=== PATIENT | male | born 1970 | race Hispanic/Latino ===

== ENCOUNTER 2019-12-01 06:55 | Emergency (ER) | payer BC, SELFPAY ==
--- NOTE | ~2019-12-01 | XR_ITS ---
EXAMINATION: XR chest 2V 12/01/2019 07:56 INDICATION: Chest pain PROCEDURE: 2 view chest COMPARISON: No prior studies for comparison. FINDINGS: The lungs are clear. The cardiomediastinal silhouette is within normal limits. There are no pleural effusions. There is no pneumothorax suspected. IMPRESSION: 1: NO ACUTE CARDIOPULMONARY DISEASE. Reviewed, dictated and finalized at location A.
[2019-12-01 06:59] VITALS: BP 136/82; PULSE 60; RESP 19; TEMP 36.1; O2SAT 100
[2019-12-01 07:08] VITALS: PULSE 77
--- NOTE | 2019-12-01 07:16 | ECG_ITS ---
Measurements Intervals [place] Rate: 65 P: 57 SD: 195 QRS: 17 QRSD: 92 T: 30 QT: 372 QTc: 389 Interpretive Statements SINUS RHYTHM DELAYED PRECORDIAL R/S TRANSITION BORDERLINE ECG Electronically Signed On 12-01-2019 8:36:45 CDT by Jericho Hancock D.O.
[2019-12-01 07:42] LABS: Basophils Percent Auto 0.6 % (0.2-1.2); Eosinophils Absolute Auto 0.2 K/mm3 (0-0.3); Eosinophils Percent Auto 3.1 % (0-4.4); Hematocrit 39.8 % (42.0-52.0); Hemoglobin 13.6 g/dL (14.0-18.0); Lymphocytes Absolute Auto 2.73 K/mm3 (0.9-3.2); Lymphocytes Percent Auto 53.4 % (18.3-44.2); Mean Corpuscular HGB Conc 34.2 g/dl (32-36); Mean Corpuscular Hemoglobin 31.9 pg (26-34); Mean Corpuscular Volume 93.2 fl (80-100); Mean Platelet Volume 10.4 fl (7.4-10.4); Monocytes Absolute Auto 0.8 K/mm3 (0.1-0.6); Monocytes Percent Auto 15.3 % (2.6-8.5); Neutrophils Absolute Auto 1.4 K/mm3 (1.3-6.7); Neutrophils Percent Auto 27.6 % (45.5-73.1); Platelet Count Result 215 k/mm3 (150-375); Red Blood Count 4.27 M/mm3 (4.6-6.20); Red Cell Distribution Width 12.9 % (11.5-14.5); White Blood Count 5.1 K/mm3 (4.5-10.0)
--- NOTE | 2019-12-01 07:43 | ED.CHESTPAIN ---
HPI - Chest Pain General Chief Complaint: Chest Pain Stated Complaint: heart cramped Time Seen by Provider: 12/01/19 07:06 History of Present Illness HPI narrative: Patient is a 49-year-old male who presents the ER with chest pain. Began about 6:30 AM. Cramping/aching pain to the left side of his chest radiating to his left axilla. Reports he had some slight weakness towards the end of it but no diaphoresis/nausea/vomiting/dizziness. He reports earlier in the week she had an episode of right hand tingling with some dizziness as well as some left hand tingling and discomfort with laying down. Given these episodes he had spoke with his PCP who reported he should come to the ER if he had anything additional. Denies exertional dyspnea or chest discomfort. No personal history of coronary disease but reports family history with his father and other males on that side the family having open heart surgery. He has never had a stress test. No numbness or tingling at this time. Related Data Allergies Allergy/AdvReac Type Severity Reaction Status Date / Time No Known Allergies Allergy Verified 08/16/19 16:05 Review of Systems Review of Systems: All systems reviewed & are unremarkable except as noted in HPI and below Constitutional: Constitutional: Denies chills, Denies fever(s) and Denies weakness ENT: Denies nasal congestion and Denies sore throat Cardiovascular: Cardiovascular: Reports chest pain, Denies rapid heart rate and Reports radiating jaw, neck or arm pain Respiratory: Respiratory: Denies chest congestion, Denies cough and Denies dyspnea Gastrointestinal: Gastrointestinal: Denies abdominal pain, Denies diarrhea, Denies nausea and Denies vomiting Musculoskeletal: Musculoskeletal: Denies back pain and Denies muscle cramps Neurologic: Reports dizziness, Denies focal weakness and Reports numbness PMFSH Past Medical History Medical History (Updated 12/01/19 @ 10:57 by Zak Cook MD) Hypertension Mixed hyperlipidemia Rotator cuff tear arthropathy of right shoulder Surgical History Surgical History (Updated 12/01/19 @ 07:46 by Zak Cook MD) History of appendectomy Social History Social History Smoking status: Never smoker Alcohol intake: current Gender identity (if verbalized by the patient): Male Exam Narrative: Exam Narrative: GENERAL: Well-appearing, well-nourished, and in no acute distress. HEAD: Normocephalic, atraumatic. CHEST: Clear to auscultation. No respiratory distress. HEART: Regular rate and rhythm. No murmur heard. Normal peripheral pulses. ABDOMEN: Soft, nontender, nondistended. EXTREMITIES: Normal range of motion. No edema. SKIN: Warm, dry, no rash. NEURO: Alert and oriented x3. PSYCH: Normal mood and affect. Course Course Emergency Course: Troponin negative x2. Normal EKG. No chest pain while in the ER. Recommend follow-up with PCP. Vital Signs Vital signs: Vital Signs Temperature 97 F L 12/01/19 06:59 Pulse Rate 60 12/01/19 06:59 Respiratory Rate 19 12/01/19 06:59 Blood Pressure 136/82 12/01/19 06:59 Pulse Oximetry 100 12/01/19 06:59 Temperature 97 F L 12/01/19 06:59 Pulse Rate 60 12/01/19 09:54 Respiratory Rate 16 12/01/19 09:54 Blood Pressure 126/78 12/01/19 09:54 Pulse Oximetry 100 12/01/19 09:54 MDM - Chest Pain Lab Data Result diagrams: 12/01/19 07:34 12/01/19 07:34 Labs: Lab Results 12/01/19 12/01/19 12/01/19 Range/Units 07:34 07:34 07:34 WBC 5.1 (4.5-10.0) K/mm3 RBC 4.27 L (4.6-6.20) M/mm3 Hgb 13.6 L (14.0-18.0) g/dL Hct 39.8 L (42.0-52.0) % MCV 93.2 (80-100) fl MCH 31.9 (26-34) pg MCHC 34.2 (32-36) g/dl RDW 12.9 (11.5-14.5) % Plt Count 215 (150-375) k/mm3 MPV 10.4 (7.4-10.4) fl Immature Gran % (Auto) 0.0 (0-0.5) % Neut % (Auto) 27.6 L (45.5-73.1)
[2019-12-01] MEDS: ASPIRIN 81 MG CHEWABLE TABLET 324 MG PO (07:49)
[2019-12-01 07:56] LABS: INR 0.9; Prothrombin Time 12.2 Seconds (11.1-14.7)
[2019-12-01 07:59] LABS: Blood Urea Nitrogen 22 mg/dL (9-20); Calcium 9.2 mg/dL (8.4-10.2); Carbon Dioxide 30 mmol/L (22-30); Chloride 101 mmol/L (98-107); Estimated CRCL calculation 90 ml/min; Estimated Glomerular Filt Rate > 60; Glucose 93 mg/dL (75-110); Potassium 4.2 mmol/L (3.4-5.0); Sodium 136 mmol/L (137-145)
[2019-12-01 08:04] LABS: Troponin I < 0.012 ng/mL (0.000-0.034)
[2019-12-01 08:05] LABS: Partial Thromboplastin Time 21.7 SECONDS (22.3-36.8)
[2019-12-01 08:32] VITALS: BP 117/85; PULSE 71; RESP 16; O2SAT 100
[2019-12-01 09:54] VITALS: BP 126/78; PULSE 60; RESP 16; O2SAT 100
[2019-12-01 10:53] LABS: Troponin I < 0.012 ng/mL (0.000-0.034)
[2019-12-01 11:07] VITALS: BP 111/83; PULSE 61; RESP 20; O2SAT 97
== END 2019-12-01 11:08 | disposition home or self-care (01) ==
PROVIDERS: Emergency Provider Emergency Medicine; PCP Family Medicine
DX: R07.9 Chest pain, unspecified (principal); I10 Essential (primary) hypertension; E78.2 Mixed hyperlipidemia; R94.31 Abnormal electrocardiogram [ECG] [EKG]
CPT/HCPCS: 36415; 71046; 80048; 84484; 85025; 85610; 85730; 93005; 99284; A9270

== ENCOUNTER → 2019-12-10 13:20 | Outpatient (CLI) | payer BC, SELFPAY ==
--- NOTE | ~2019-12-10 | MR_ITS ---
EXAMINATION: MR brain/brain stem wo/w con EXAM DATE: 12/10/2019 14:03 INDICATION: Numbness of tongue and lips. Slurred speech. Intermittent dizziness. TECHNIQUE: Magnetic resonance imaging (MRI) of the brain/brain stem obtained without contrast. Sagit vanessa T1, axial diffusion, gradient echo (T2*), T1, T2, FLAIR sequences obtained. Patient was then inj ected with 14 cc intravenous Multihance contrast. Axial and coronal postcontrast T1 weighted sequence s obtained. There is no prior study for comparison. FINDINGS: There are no areas of restricted diffusion to suggest acute infarction. There is no acute hemorrhage seen on the T2*, a hemosiderin sensitive sequence. No intraparenchymal brain mass. The ve ntricles are normal in size. There are no extra-axial collections. Flow voids are seen in the cereb ral arteries on the T2-weighted sequences consistent with their expected patency. The orbits are unr emarkable. Soft tissue is unremarkable. There are no areas of abnormal enhancement on the postcont rast images. IMPRESSION: 1. Normal brain MRI examination. Reviewed, dictated and finalized at location B.
--- NOTE | ~2019-12-10 | US_ITS ---
EXAMINATION: US carotid duplex BI EXAM DATE: 12/10/2019 14:38 INDICATION: Speech impairment, finger tongue lip paresthesia. TECHNIQUE: Grayscale, color and pulsed Doppler images of the cervical carotid arteries were obtained . The degree of vessel stenosis is placed in one of the following categories: normal, <50% stenosis, 50-69% stenosis, >=70% stenosis but less than near-occlusion, near-occlusion, or occlusion. Note that percent stenosis relative to normal distal artery lumen diameter is indirectly measured from velocit y measurements as described by Miguel, et al. Radiology 2003; 229:340-346. There is no prior study fo r comparison. FINDINGS: RIGHT SIDE: Right common carotid artery peak systolic velocity (PSV in cm/s): 102 Right bulb/internal carotid artery peak systolic velocity (PSV in cm/s): 79 Right internal carotid artery end diastolic velocity (EDV in cm/s): 18 Right ICA/CCA peak systolic ratio: 0.8 Right external carotid artery peak systolic velocity (PSV in cm/s): 70 Right vertebral artery antegrade flow: yes There is no focal plaque identified. LEFT SIDE: Left common carotid artery peak systolic velocity (PSV in cm/s): 80 Left bulb/internal carotid artery peak systolic velocity (PSV in cm/s): 58 Left internal carotid artery end diastolic velocity (EDV in cm/s): 21 Left ICA/CCA peak systolic ratio: 0.7 Left external carotid artery peak systolic velocity (PSV in cm/s): 51 Left vertebral artery antegrade flow: yes There is no focal plaque identified. IMPRESSION: 1. Normal right internal carotid artery. 2. Normal left internal carotid artery. > Reviewed, dictated and finalized at location B.
== END ==
PROVIDERS: Visit Provider Physician Assistant
DX: R20.2 Paresthesia of skin (principal)
CPT/HCPCS: 70553; 93880; A9577

== ENCOUNTER 2019-12-20 09:33 | Outpatient (CLI) | payer BC, SELFPAY ==
--- NOTE | 2019-12-20 09:46 | EST_ITS ---
Patient Info Name: Brodie Arreola Age: 49 years : 1970 Gender: Male Ht: 67 in Wt: 158 lbs BSA: 1.85 m2 Exam Date: 12/20/2019 9:59 AM Exam Location: [facility] Stress Patient Status: Outpatient Admit Date: 12/20/2019 Staff Ordering Physician: Connie Simms PA-C Attending Provider: Connie Simms PA-C Exercise Technologist: Claudette Erickson RDCS Exercise Physician: Jericho Hancock DO Exam Type: CA stress test treadmill Study Info Indications R07.9 - Chest pain, unspecified A treadmill exercise stress test was performed. Summary 1. 1. Negative Joss exercise stress test for ischemic ST changes by ECG criteria. 2. 2. Good functional capacity, achieving 13 METs of workload. 3. 3. Appropriate HR response to exercise. 4. 4. Appropriate HR recovery at 1 minute post exercise. 5. 5. No imaging with stress testing. 6. 6. Patient informed of the above results. Protocol: Joss Stress ECG Details Stage: REST Duration (min): 5 min : 50 sec Speed (mph): 0.0 Grade (%): 0 HR (bpm): 64 SBP (mmHg): 96 DBP (mmHg): 70 METS: --- Stage: REST Duration (min): 8 min : 30 sec Speed (mph): 0.0 Grade (%): 0 HR (bpm): 65 SBP (mmHg): 96 DBP (mmHg): 70 METS: --- Stage: STAGE 1 Duration (min): 1 min : 0 sec Speed (mph): 1.7 Grade (%): 10 HR (bpm): 97 SBP (mmHg): 96 DBP (mmHg): 70 METS: --- Stage: STAGE 1 Duration (min): 2 min : 0 sec Speed (mph): 1.7 Grade (%): 10 HR (bpm): 105 SBP (mmHg): 96 DBP (mmHg): 70 METS: --- Stage: STAGE 1 Duration (min): 3 min : 0 sec Speed (mph): 1.7 Grade (%): 10 HR (bpm): 108 SBP (mmHg): 143 DBP (mmHg): 69 METS: --- Stage: STAGE 2 Duration (min): 1 min : 0 sec Speed (mph): 2.5 Grade (%): 12 HR (bpm): 118 SBP (mmHg): 143 DBP (mmHg): 69 METS: --- Stage: STAGE 2 Duration (min): 2 min : 0 sec Speed (mph): 2.5 Grade (%): 12 HR (bpm): 127 SBP (mmHg): 143 DBP (mmHg): 68 METS: --- Stage: STAGE 2 Duration (min): 3 min : 0 sec Speed (mph): 2.5 Grade (%): 12 HR (bpm): 129 SBP (mmHg): 143 DBP (mmHg): 68 METS: --- Stage: STAGE 3 Duration (min): 1 min : 0 sec Speed (mph): 3.4 Grade (%): 14 HR (bpm): 137 SBP (mmHg): 142 DBP (mmHg): 62 METS: --- Stage: STAGE 3 Duration (min): 2 min : 0 sec Speed (mph): 3.4 Grade (%): 14 HR (bpm): 141 SBP (mmHg): 142 DBP (mmHg): 62 METS: --- Stage: STAGE 3 Duration (min): 3 min : 0 sec Speed (mph): 3.4 Grade (%): 14 HR (bpm): 145 SBP (mmHg): 150 DBP (mmHg): 64 METS: --- Stage: STAGE 4 Duration (min): 1 min : 0 sec Speed (mph): 4.2 Grade (%): 16 HR (bpm): 152 SBP (mmHg): 150 DBP (mmHg): 64 METS: --- Stage: STAGE 4 Duration (min): 2 min : 0 sec Speed (mph):
== END 2019-12-20 09:34 | disposition home or self-care (01) ==
LOC: ANHCARD 09:35
PROVIDERS: Visit Provider Physician Assistant
DX: R07.9 Chest pain, unspecified (principal)
CPT/HCPCS: 93017

== ENCOUNTER 2020-02-06 00:56 | Outpatient (CLI) | payer BC, SELFPAY ==
[2020-02-06 18:19] LABS: SARS-CoV-2 RNA PCR Negative
== END 2020-02-06 00:57 | disposition home or self-care (01) ==
LOC: ANHCOVIDDT 00:56
PROVIDERS: PCP Family Medicine; Visit Provider Internal Medicine Gastroenterology
DX: Z01.812 Encounter for preprocedural laboratory examination (principal); Z20.828 Contact with and (suspected) exposure to other viral communicable diseases
CPT/HCPCS: 87635; C9803; U0003

== ENCOUNTER 2020-02-08 00:54 | Day surgery (SDC) | payer BC, SELFPAY ==
[2020-01-31 12:55] VITALS: BMI 24.8
[2020-02-08 06:28] VITALS: BP 111/71; PULSE 67; RESP 16; TEMP 36.1; O2SAT 100; BMI 23.3
[2020-02-08] MEDS: LACTATED RINGERS 1,000 ML 150 ML IV CONT (06:45)
--- NOTE | 2020-02-08 07:14 | WPDANESEPPF ---
Anes - Initial Pre Proc Eval Procedure: Operation Date: 02/08/20 07:30 Proposed Procedures p Screening Colonoscopy - Noe Castro MD Date/Time: 02/08/20 07:14 Surgeon: Noe Castro MD Pre Op Diagnosis: neoplasm screening Patient Data Age: 49 Gender: M Height: 5 ft 7 in Weight: 67.4 kg Last Vital Signs Temp 97.0 F L 02/08/20 06:28 Pulse 67 02/08/20 06:28 Resp 16 02/08/20 06:28 BP 111/71 02/08/20 06:28 Pulse Ox 100 02/08/20 06:28 Allergies Allergy/AdvReac Type Severity Reaction Status Date / Time No Known Allergies Allergy Verified 02/08/20 06:27 Home Medications Medication Instructions Recorded Confirmed Type peg 3350-electrolytes 236 240 ml PO Q10M #4000 ml 12/10/19 01/10/20 Rx gram-22.74 gram-6.74 gram-5.86 gram solution lisinopril 10 mg tablet 10 mg PO DAILY #90 tablet 01/21/20 02/08/20 Rx Patient hx anesthesia problems: none Family hx anesthesia problems: none PMFSH Past Medical History Medical History (Updated 12/02/19 @ 00:00 by Cristian Wolf) Hypertension Mixed hyperlipidemia Rotator cuff tear arthropathy of right shoulder Surgical History Surgical History (Updated 12/01/19 @ 07:46 by Zak Cook MD) History of appendectomy Social History Social History Smoking status: Never smoker Alcohol intake: current Gender identity (if verbalized by the patient): Male Anes - Eval Final PreProcedure Day of Procedure 02/08/20 07:14 Patient weight: normal Heart: regular rate and rhythm Lungs: clear to auscultation Airway: Mallampati scale class II Neurological: alert and oriented Last oral intake: >/= 8 hours ASA classification: II Emergent: no Anesthetic plan: proceed Anesthesia type and monitoring: general GIVS and standard monitoring Informed Consent: The patient's anesthetic plan and its attendant risks and benefits were discussed with the patient/family/POA. Questions were solicited and answers provided to the satisfaction of the patient/family/POA.
--- NOTE | 2020-02-08 07:34 | PM.HPGS ---
History of Present Illness History of Present Illness Consent: Risks, benefits, and alternatives have been discussed and questions answered. Patient agrees to proceed with procedure. Chief complaint: neoplasm screening Narrative: Brodie Arreola is a 49 year old male here for first screening colonoscopy Review of Systems Constitutional: Constitutional: Denies headache(s) and Denies weakness Eyes: Eyes: Denies blurry vision ENT: Reports Normal hearing present, Denies headache(s) and Denies neck pain Cardiovascular: Cardiovascular: Denies chest pain and Denies dyspnea Respiratory: Respiratory: Denies dyspnea Gastrointestinal: Gastrointestinal: Reports no additional gastrointestinal complaints Genitourinary: Genitourinary: Denies dysuria Musculoskeletal: Musculoskeletal: Denies neck pain Integumentary/Breasts: Skin/Breast: Denies dry skin Neurologic: Reports Normal hearing present, Denies headache(s) and Denies weakness Psychiatric: Psychiatric: Denies anxiety Endocrine: Endocrine: Denies change in body appearance Hematologic/Lymphatic: Hematologic/Lymphatic: Denies easy bleeding Allergic/Immunologic: Allergic/Immunologic: Denies urticaria [facility] Past Medical History Medical History (Updated 02/08/20 @ 07:34 by Noe Castro MD) Colon cancer screening Hypertension Mixed hyperlipidemia Rotator cuff tear arthropathy of right shoulder Surgical History Surgical History (Updated 12/01/19 @ 07:46 by Zak Cook MD) History of appendectomy Social History Social History Smoking status: Never smoker Alcohol intake: current Gender identity (if verbalized by the patient): Male Meds Home Medications and Allergies Home Medications Medication Instructions Recorded Confirmed Type peg 3350-electrolytes 236 240 ml PO Q10M #4000 ml 12/10/19 01/10/20 Rx gram-22.74 gram-6.74 gram-5.86 gram solution lisinopril 10 mg tablet 10 mg PO DAILY #90 tablet 01/21/20 02/08/20 Rx Allergies Allergy/AdvReac Type Severity Reaction Status Date / Time No Known Allergies Allergy Verified 02/08/20 06:27 Vital Signs Vital Signs - 24 hr 02/08/20 06:28 Temperature 97.0 F L Pulse Rate 67 Respiratory Rate 16 Blood Pressure 111/71 Pulse Oximetry 100 Exam Const: General: comfortable and no acute distress HENMT: General nose exam: Normal nares present Eyes: General: appearance normal, both eyes and all related structures Neck: Neck: no JVD Resp: Auscultation: clear to auscultation bilaterally Cardio: Rate: regular rate Rhythm: regular rhythm GI: Inspection: non-distended GI Palp: Yes Soft to palpation Skin: General skin exam: normal color Neuro: General: gait normal Speech: normal speech Extrem: General: normal to inspection Psych: Mental Status: mental status grossly normal Assessment and Plan Assessment and plan (1) Colon cancer screening: Code(s): Z12.11 - Encounter for screening for malignant neoplasm of colon Status: Acute Assessment and Plan: will proceed with colonoscopy
[2020-02-08 07:52] VITALS: BP 84/48; PULSE 60; RESP 24; O2SAT 100
[2020-02-08 08:02] VITALS: BP 98/55; PULSE 58; RESP 20; O2SAT 99
[2020-02-08 08:12] VITALS: BP 103/70; PULSE 58; RESP 20; O2SAT 96
== END 2020-02-08 08:30 | disposition home or self-care (01) ==
PROVIDERS: PCP Family Medicine; Visit Provider Internal Medicine Gastroenterology
PROC: 0DJD8ZZ Inspection of Lower Intestinal Tract, Via Natural or Artificial Opening Endoscopic (ICD-10-PCS; CPT 45378; principal; 2020-02-08 07:30)
DX: Z12.11 Encounter for screening for malignant neoplasm of colon (principal); I10 Essential (primary) hypertension; E78.2 Mixed hyperlipidemia; Z79.899 Other long term (current) drug therapy
CPT/HCPCS: 45378; J2704; J7120

== ENCOUNTER → 2021-01-06 06:54 | Outpatient (CLI) | payer BC, SELFPAY ==
[2021-01-06 20:36] LABS: SARS-CoV-2 RNA PCR Negative
== END ==
PROVIDERS: PCP Family Medicine; Visit Provider Family Medicine
DX: Z20.822 Contact with and (suspected) exposure to COVID-19 (principal); R09.89 Other specified symptoms and signs involving the circulatory and respiratory systems
CPT/HCPCS: C9803; U0003; U0005

== ENCOUNTER 2021-09-02 15:51 | Outpatient (CLI) | payer BC, SELFPAY ==
--- NOTE | ~2021-09-02 | MR_ITS ---
EXAMINATION: MR shoulder LT wo con DATE: 09/02/2021 16:29 INDICATION: Left shoulder pain TECHNIQUE: Magnetic resonance imaging (MRI) of the left shoulder was performed without intravenous co ntrast. Sequences included axial PD-weighted FS FSE, coronal oblique PD-weighted FS FSE, coronal obli que T2-weighted FS FSE, sagittal PD-weighted FS FSE, and sagittal T1-weighted SE. COMPARISON: None. FINDINGS: Coracoacromial arch: The acromion undersurface is curved in morphology (type II). The coracoacromial ligament is normal. N egligible acromioclavicular osteoarthritis. Rotator cuff: Mild supraspinatus and infraspinatus tendinopathy. Partial-thickness tear of the supraspinatus and co njoined portion of the supraspinatus and infraspinatus tendons. The tear begins anteriorly in the sup raspinatus tendon as a mild intrasubstance tear involving approximately one third of the tendon thick ness and extending 8 mm posteriorly to where it transitions to an articular sided tear of the conjoin ed portion of the tendon extending additional 7 mm posteriorly. The articular portion of the tear is located approximately 7 mm from the greater tuberosity footplate and involves up to one half of the t endon thickness. There is no significant medial retraction. The teres minor and subscapularis tendons are normal. Normal rotator cuff muscle bulk and signal. Biceps tendon, glenoid labrum and glenohumeral cartilage: Long head of the biceps tendon is normal. Glenoid labrum is normal. Glenohumeral cartilage is normal. Fluid: Physiologic amount of fluid in the glenohumeral joint and biceps tendon sheath. No loose osteochondr al bodies. No abnormal fluid signal in the subacromial/subdeltoid bursa to suggest bursitis. Bones: Normal marrow signal with no edema, fracture or pathologic marrow replacing process. IMPRESSION: 1. Mild supraspinatus and infraspinatus tendinopathy with mild severity partial-thickness intrasubsta nce tear in the supraspinatus transitioning to a moderate severity articular sided tear at the conjoi angel portion of the supraspinatus and infraspinatus tendons. Reviewed, dictated and finalized at location A. IMPRESSION: 1. Mild supraspinatus and infraspinatus tendinopathy with mild severity partial -thickness intrasubstance tear in the supraspinatus transitioning to a moderate severity articular sided tear at the conjoined portion of the supraspinatus an d infraspinatus tendons.
== END 2021-09-02 15:52 | disposition home or self-care (01) ==
LOC: ANHIMG 15:55
PROVIDERS: PCP Family Medicine; Visit Provider Orthopaedic Surgery
DX: M75.102 Unspecified rotator cuff tear or rupture of left shoulder, not specified as traumatic (principal)
CPT/HCPCS: 73221

== ENCOUNTER 2022-01-04 00:21 | Day surgery (SDC) | payer BC, SELFPAY ==
[2021-12-30 09:17] VITALS: BMI 24.3
--- NOTE | 2021-12-30 09:22 | PC.NURSE ---
Report to the Outpatient Waiting Room, entrance under the green pavilion located off [facility], at time _0600_ on date _[id number]_. OR Time: _0730_. - You and your visitor will be asked a series of questions to screen for COVID 19 for your protection. - Only one visitor is allowed at this time. - The patient visitor is requested to leave or wait in car when not with patient. - A mask is required within the hospital. Patients may have clear liquids (water, carbonated beverages, clear teas, apple juice) until 3 hours prior to surgery with a maximum of 20 ounces. - No food from midnight until time of surgery Take the following medications with a SIP of water the morning of surgery: ____None Medications to discontinue per physician Multivitamin Date to take last wits__[id number] Please no make-up, nail zambian, hairspray, perfume, deodorant, or body powder the day of surgery. No jewelry (including any body piercings) or valuables the day of surgery, leave them at home. Please take a shower or bath the night before, or the morning of, surgery with an antibacterial soap. Wear comfortable, loose fitting clothing. - Jewelry must be removed prior to entering the operating room. Rings and piercings that are not removed may be cut off. - The hospital will not accept responsibility for valuables. - Please leave all valuables, including medications, at home the day of surgery. If you are going home after surgery, a licensed lyft driver must drive you home. - NO public transportation without another adult. - We recommend that an adult stay with you for 24 hours following discharge. - We also recommend that you do not drive, make important decision, drink alcoholic beverages, or take any drugs that were not prescribed by your health care provider for at least 24 hours after your discharge time. Follow any additional instructions given to you from your surgeon. If you or anyone in your household have experienced Covid symptoms in the past week, please notify your surgeon or the nurse liaison at the phone number below for possible testing. Telephone instructions given to __Patient and asked if any additional questions and then verbalized understanding. Patient advised to call surgeon office or pre surgery nurse liaison [phone] if any additional questions.
[2022-01-04] VITALS (10 sets, daily range): BP systolic 92–116; BP diastolic 43–83; PULSE 60–74; RESP 13–18; TEMP 36.3–36.5; O2SAT 96–100
--- NOTE | 2022-01-04 05:56 | ECG_ITS ---
Measurements Intervals [place] Rate: 69 P: 62 ID: 194 QRS: 25 QRSD: 92 T: 21 QT: 361 QTc: 388 Interpretive Statements SINUS RHYTHM DELAYED PRECORDIAL R/S TRANSITION BORDERLINE ECG Electronically Signed On 01-04-2022 7:48:24 CDT by Jericho Hancock D.O.
--- NOTE | 2022-01-04 06:50 | P.PNAN_ITS ---
Anes - Initial Pre Proc Eval Procedure: Operation Date: 01/04/22 07:30 Proposed Procedures p Left Rotator Cuff Repair - Nehemiah Blancas MD Date/Time: 01/04/22 06:50 Surgeon: Nehemiah Blancas MD Pre Op Diagnosis: Left Rotator Cufff Tear Patient Data Age: 51 Gender: M Height: 1.7 m Weight: 70.5 kg Allergies Allergy/AdvReac Type Severity Reaction Status Date / Time No Known Allergies Allergy Verified 12/30/21 09:16 Home Medications Medication Instructions Recorded Confirmed Type lisinopril 10 mg tablet See Rx Instructions .Route 10/02/21 12/30/21 Rx .COMPLEX #90 tabs ferrous sulfate 325 mg (65 mg See Rx Instructions .Route 11/30/21 12/30/21 Rx iron) tablet (FeroSul) .COMPLEX #90 tabs multivitamin 1 tablet PO DAILY 12/30/21 12/30/21 History Patient hx anesthesia problems: none Family hx anesthesia problems: none Results Review: All pre-operative results and documents have been reviewed as part of the pre- operative evaluation. [facility] Past Medical History Medical History Colon cancer screening Hypertension Left shoulder pain Mixed hyperlipidemia Rotator cuff tear arthropathy of right shoulder Surgical History Surgical History H/O rotator cuff surgery right rotator cuff repair June 2018 History of appendectomy History of surgery on arm radial tunnel 2017 Family History Family History Grandparent Hypertension Family history of coronary artery disease Family history of cardiovascular disease Father Family history of coronary artery disease Family history of cardiovascular disease Sibling Diabetes mellitus Social History Social History Smoking status: Never smoker Alcohol intake: current Drinks per week: 2 Substance use: never Living arrangements: with family 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, journeyman pipefitter Gender identity (if verbalized by the patient): Male Spiritual care concerns: Yes (No blood.) Agree to blood products: No Anes - Eval Final PreProcedure Day of Procedure 01/04/22 06:50 Patient weight: normal Heart: regular rate and rhythm Lungs: clear to auscultation Airway: Mallampati scale class II Neurological: alert and oriented Last oral intake: >/= 8 hours ASA classification: II Emergent: no Anesthetic plan: proceed Anesthesia type and monitoring: general ETT and standard monitoring Results Review: All pre-operative results and documents have been reviewed as part of the pre- operative evaluation. Informed Consent: The patient's anesthetic plan and its attendant risks and benefits were discussed with the patient/family/POA. Questions were solicited and answers provided to the satisfaction of the patient/family/POA.
--- NOTE | 2022-01-04 06:50 | WPDANESPNB ---
Anes - Peripheral Nerve Block Date/Time: 01/04/22 06:50 I have discussed with the patient/family/POA the placement of a peripheral nerve block for post-operative pain management, including associated risks, benefits, complications, and side effects. Alternative methods of post-operative analgesia were detailed. Questions were solicited and answers provided to the satisfaction of the patient/family/POA. Time-Out: A pre-procedural Time-Out was completed immediately before starting the procedure and confirmed: Patient Identification, Site, Procedure, Patient Position and the Availability of Requisite Equipment. Clinical Indications: Acute post-operative pain management requested by the operative surgeon. Nerve Block Insertion Note Anes-nerve block: supraclavicular left Patient position: supine Skin prep: chlorhexidine Needle: 22 gauge, stimulating, insulated echogenic needle. Needle length: 80 mm Technique: ultrasound (in plane) Injectate: bupivacaine 0.5% with epi 5 mcg/ml (20cc) Observations: tolerated well Complications: none Procedure start time:: 720 Procedure end time:: 725
[2022-01-04] MEDS: LACTATED RINGERS 1,000 ML 30 ML IV CONT (06:55)
[2022-01-04] MEDS: ACETAMINOPHEN 500 MG TABLET 1000 MG PO (06:55)
[2022-01-04] MEDS: KETOROLAC 15 MG/ML VIAL (*BKC) IV PUSH (06:56)
--- NOTE | 2022-01-04 07:19 | WPDHPUPDATE1 ---
History and Physical Update Update Date/Time: 01/04/22 07:19 History and Physical has been reviewed, including an updated exam of the patient. There are NO changes in the patient's condition. Risks, benefits, and alternatives have been discussed and questions answered. Patient agrees to proceed with procedure.
[2022-01-04] MEDS: ceFAZolin 2 GM/D5W 50 ML 2 GM/50 ML BAG IVPB (07:35)
[2022-01-04] MEDS: BUPIVACAINE/EPINEPHRINE 0.25% 50 ML VIAL INFILTRATE (08:05)
--- NOTE | 2022-01-04 08:42 | P.OP_ITS ---
Procedure Note - Detailed Date of Procedure 01/04/22 Pre-op Diagnosis Left Rotator Cufff Tear Post-op Diagnosis Same Procedure Performed Left rotator cuff repair Surgeon Nehemiah Blancas MD Physician Practice Market Manager [facility]iel Anesthesia General and Regional Description of Procedure Patient was identified and proper site identified. In the preop holding area the anesthesia team performed a left upper extremity block. He was then taken to the operating room and transferred to the or table taking care to pad the torso and extremities. After general anesthetic induction and intubation, hewas put in a semi beach chair position in the usual manner for a leftshoulder procedure. His head was secured taking care to neither rotate nor extend the head and neck. The left upper extremity was prepped and draped free in usual sterile fashion. The subcutaneous tissue in the area of the incision was injected with 10 cc of 0.25% Marcaine and epinephrine solution. An oblique anterior incision was made extending from the AC joint distally in line with the fibers of the deltoid. Subcutaneous tissue was sharply dissected down to the deltoid fascia. The deltoid was dissected off the anterior portion of the acromion. A 2 cm split was made at the junction between the anterior and middle thirds of the deltoid. Using the microsagittal saw was used to perform the acromioplasty and then the undersurface of the acromion was rasped smooth. There was an abundance of thickened adherent bursa which was sharply debrided allowing for inspection of the rotator cuff. The cuff itself in the supraspinatus was quite erythematous and was an area the supraspinatus insertion that was extremely thin corresponding to what was seen on the MRI. The remaining fibers of the tendon were released off of the greater tuberosity allowing for debridement of the tendon as well as preparing the tuberosity for repair. Was repaired back to the tuberosity with 2. Ethibond suture passed through a bony bridge giving a allen repair which was stable as the shoulder was taken through range of motion. The wound was irrigated with sterile NaCl solution. The deltoid was repaired back to the acromion with 2. Ethibond suture passed through bone and the remainder of the deltoid repair carried out with 2. Vicryl. Subcutaneous tissue was reapproximated with three 0 V lock and then tissue adhesive used for the skin. Sterile dressing was applied. There were no known intraoperative complications, and perioperative antibiotics were administered. Estimated Blood Loss 20 Drains No Packing No Pathology None sent Complications No immediate complications Condition Stable Disposition PACU
== END 2022-01-04 10:36 | disposition home or self-care (01) ==
PROVIDERS: PCP Family Medicine; Visit Provider Orthopaedic Surgery
PROC: (CPT 23420; principal; 2022-01-04 07:30)
DX: M75.102 Unspecified rotator cuff tear or rupture of left shoulder, not specified as traumatic (principal); G89.18 Other acute postprocedural pain; I10 Essential (primary) hypertension
CPT/HCPCS: 23412; 64415; 93005; A4565; A9270; J0330; J0690; J1100; J1170; J1885; J2250; J2370; J2405; J2704; J3010; J7120

== ENCOUNTER 2022-04-05 08:00 | Outpatient (RCR) | payer BC, SELFPAY ==
[2022-01-06 10:36] VITALS: BP_SYST 70
--- NOTE | 2022-01-06 11:25 | PTOPEVAL ---
PHYSICAL THERAPY EVALUATION AND PLAN OF CARE Thank you for referring Brodie Arreola to [facility].? The patient is scheduled to be seen for therapy? 2-3x/week for 6 weeks. Please review, sign, date and return this plan of care SYDNEY. I agree with and certify that the following plan of care is medically necessary. Referring Physician Date Attending Provider: Nehemiah Blancas MD Diagnosis left rotator cuff repair Onset 01/04/22 Subjective Information states that he is feeling ok Query Text:As Reported By Patient/ except for pain in the Family shoulder after the nerve block wore off. Wears the sling out of the house and as needed. Self Report Pain Assessment Left Shoulder(s) Reported Pain Level 4 Pain Description Aching,Dull Pain Frequency Chronic Pain Score Pain Score 4: Self Report Interventions Used Interventions Used By Clinicians Ice,Position Change,Rest Other Alleviating Interventions sling Upper Extremity Range of Motion Scapular/ Shoulder Range of Motion Left Shoulder Flexion - Passive 80 Shoulder Abduction - Passive 70 Shoulder Lateral Rotation - Passive 10 PT Clinical Summary Brodie is a 51 yo male presenting to outpatient physical therapy 2 days s/p left rotator cuff repair. Incision is clean and without drainage and his pain is controlled with medication. Due to surgical precautions he has limited shoulder ROM and strength and impaired ADLs. He will require skilled PT to provide education, training, and progress through protocol to rehabilitate well.
[2022-02-18 10:56] VITALS: BP_SYST 90
--- NOTE | 2022-02-18 13:45 | PTOPPROG ---
Evaluation Information Assessment Status Progress Diagnosis Left RTC repair Onset 01/04/22 Subjective Information Pt states his pain was really well controlled for the first couple weeks. He states in the last week or so since he has been able to do more, his shoulder has been really sore and achy. Assessment PT Clinical Summary Brodie presents to therapy today for his progress report following 12 visits to treat his L RTC repair performed on 01/06/22. He has progress to the active ROM and resisted motion phase of his rehab. Today he is unable to tolerate resistance. He demonstrates decreased active and passive ROM when compared to his uninvolved side. He demonstrates frequent upper trap activation during general movements. Continuation of skilled physical therapy services are indicated to address the remaining deficits, manage pain, progress strength and ROM, and to return to unlimited functional mobility. Plan of Care Interventions Electrical Stimulation,Hot Pack/Cold Pack,Manual Therapy,Neuro Re-education,Patient/Caregiver Educati,Therapeutic Activities,Therapeutic Exercise PT Services Indicated Yes Treatment Frequency and 3x/wk for 4 wks Duration These treatments will address the objective and functional deficits as defined above. The patient will be advanced safely and appropriately in order for the patient to progress towards his/her prior level of function. Additional exercises will be introduced and as well as a comprehensive home exercise program upon discharge, if needed, ?to ensure carryover of functional gains achieved in the clinic. This treatment plan has been reviewed and agreement upon by the patient.
--- NOTE | 2022-03-05 10:22 | PCPTNOTE ---
Patient called & cancelled scheduled appointment this date due to not having a sitter for his grandchildren.
[2022-03-23 09:01] VITALS: BP_SYST 115
--- NOTE | 2022-03-23 09:58 | PTOPPROG ---
Assessment and note entered by Mauricio Queen, PT, DPT Evaluation Information Assessment Status Progress Diagnosis Left RTC repair Onset 01/04/22 Subjective Information Pt states his shoulder is progressing well but not as quick as he would like. He states he is limited in what he can do overhead as well as prolonged motions with his arm outstretched. He states he is still not sleeping well. He reports last night he was having pretty significant cramping in his hands. Assessment PT Clinical Summary Peggy presents to therapy today for his progress report following 21 visits of skilled therapy to treat his L rotator cuff regain performed on . Today he demonstrates improving strength, active ROM, and passive ROM. All of these are still lacking significantly when compared to his uninvolved side. His active/passive flexion is 114 /135 deg, abduction is 88/115 deg, and passive shoulder ext rot is 38 deg. Continuation of skilled physical therapy services are indicated to continue progressing towards goals, to improve pain, and to promote unlimited functional mobility . Plan of Care Interventions Electrical Stimulation,Hot Pack/Cold Pack,Manual Therapy,Neuro Re-education,Patient/Caregiver Educati,Therapeutic Activities,Therapeutic Exercise PT Services Indicated Yes Treatment Frequency and 2x/wk for 4 wks Duration These treatments will address the objective and functional deficits as defined above. The patient will be advanced safely and appropriately in order for the patient to progress towards his/her prior level of function. Additional exercises will be introduced and as well as a comprehensive home exercise program upon discharge, if needed, ?to ensure carryover of functional gains achieved in the clinic. This treatment plan has been reviewed and agreement upon by the patient.
--- NOTE | 2022-04-06 08:24 | PCPTNOTE ---
This treatment is being continued on visit number [id number]. Please see documentation on both accounts to view progress. Completed interventions, outcomes, and problems have been marked as Inactive to facilitate the copying of the Care plan routine for recurring accounts.
== END 2022-04-06 07:08 | disposition home or self-care (01) ==
LOC: ANHPT 08:00
PROVIDERS: PCP Family Medicine; Visit Provider Orthopaedic Surgery
DX: M75.112 Incomplete rotator cuff tear or rupture of left shoulder, not specified as traumatic (principal)
CPT/HCPCS: 97014; 97110; 97112; 97140; 97162; 97530; G0283

== ENCOUNTER 2022-04-28 08:00 | Outpatient (RCR) | payer BC, SELFPAY ==
[2022-04-06 07:08] VITALS: BP_SYST 115
--- NOTE | 2022-04-06 08:25 | PCPTNOTE ---
The treatment documented on this account is a continuation of the treatment documented on visit number [id number]. Please see documentation on both accounts to view progress. The Plan of Care has been transitioned and updated within the new V#. I have addressed and agree with the discipline specific Problems, Interventions, and Goals for the current certification period. Completed interventions, outcomes, and problems have been marked as Inactive to facilitate the copying of the Care plan routine for recurring accounts.
[2022-04-28 08:05] VITALS: BP_SYST 140
--- NOTE | 2022-04-28 08:57 | PTOPPROG ---
Assessment and note entered by Jackie Gomez, PT Evaluation Information Assessment Status Progress Diagnosis Left RTC repain Onset 01/04/22 Subjective Information Brodie reports: pain range of 0-5/10; at end range of stretching pain increases--pain in lateral GH joint; tight in the morning when wake up; decrease pain by stretching, moving shoulder; at home, use pullys or wall stretch to stretch shoulder; job is welding and pipe fitting--8 hour shifts--- feels like he cannot do his job yet; stated his job requirement for lifting is max: one hand 40#/ B hands 80#; had an injection 03-25-22 and not sure if it helped or not; Assessment PT Clinical Summary Brodie has received a total of 31 PT sessions, from January 06 to today, s/p L rotator cuff repair. With today's reassessment: L shoulder: pain rating of 0-5/10; ROM: active/passive: flexion 130'/ 140'; abduction 130'/140'; IR- reach behind back, palm to waist; ER- reach behind head, palm to behind ear; functional strength testing: L UE: - shoulder flexion to 120' with 5# hand wt x 20 reps, pain did not increase, but shoulder tired; - shoulder abduction to 125' with 5# hand wt x 12 reps, pain did not increase, but shoulder tired; Maximum B UE lift: - floor/waist height: 55#-stop due to reports pain in L elbow - waist/shoulder: 30 to 55 height: 28#- stop due to pain and shoulder weakness He is independent with his home exercise program-- has pulleys at home, working on stretching and strengthening shoulder. PROGRESS: since last reeval: increase in active shoulder flexion by 15' and abduction by 40'; strength has increased. He continues to have pain rating of about the same; tightness over scapula , limiting his scapular-humeral rhythm with shoulder elevation with motion. The goals were partially achieved. Continue PT treatment to increase strength for return to work. With use of modalities PRN to decrease pain and tightness.
--- NOTE | 2022-06-21 16:17 | PCPTNOTE ---
PHYSICAL THERAPY DISCHARGE 06-21-22 Attending Provider: Nehemiah Blancas MD Patient:Brodie Arreola Date of :1970 Brodie has not returned for any further treatments since the reevaluation on 04/28/2022, therefore he will be discharged at this time. Thank you for referring this patient to [facility].
== END 2022-06-22 14:04 | disposition home or self-care (01) ==
LOC: ANHPT 08:00
PROVIDERS: PCP Family Medicine; Visit Provider Orthopaedic Surgery
DX: Z48.89 Encounter for other specified surgical aftercare (principal); M75.112 Incomplete rotator cuff tear or rupture of left shoulder, not specified as traumatic; Z98.890 Other specified postprocedural states
CPT/HCPCS: 97014; 97110; 97112; 97140; 97530; G0283

== ENCOUNTER 2025-01-22 10:57 | Outpatient (CLI) | payer BC, SELFPAY ==
--- NOTE | 2025-01-22 | ECG_ITS ---
Test Date: 2025-01-22 11:22:28 Measurements Intervals [place] Rate: 64 P: 65 MI: 192 QRS: 42 QRSD: 93 T: 49 QT: 377 QTc: 390 Interpretive Statements SINUS RHYTHM BASELINE ARTIFACT- I, III NORMAL ECG No previous ECG available for comparison Electronically Signed On 01-22-2025 11:28:47 CDT by Jericho Hancock D.O.
--- NOTE | ~2025-01-22 | XR_ITS ---
Exam: Chest x-ray 2 views. HISTORY: Shortness of breath. Chest pressure for 5 days. COMPARISON: 12/01/2019. TECHNIQUE: Frontal and lateral views of the chest were obtained. FINDINGS: Heart is not enlarged. No pneumothorax or pleural effusion. No free air the diaphragm. No focal pulmo nary consolidation. IMPRESSION: 1. No acute pulmonary process identified Reviewed, dictated and finalized at location A.
== END 2025-01-22 10:58 | disposition home or self-care (01) ==
PROVIDERS: PCP Family Medicine; Visit Provider Family Medicine
DX: R06.02 Shortness of breath (principal)
CPT/HCPCS: 71046; 93005

== ENCOUNTER 2025-01-30 08:41 | Outpatient (CLI) | payer BC, SELFPAY ==
--- NOTE | 2025-01-30 08:49 | EST_ITS ---
Patient Info Name: Brodie Arreola Age: 54 years : 1970 Gender: Male Ht: 67 in Wt: 160 lbs BSA: 1.86 m2 BP: 111 / 72 mmHg Exam Date: 01/30/2025 8:49 AM Patient Status: O Admit Date: 01/30/2025 Exam Type: CA stress test treadmill A treadmill exercise stress test was performed. Staff Attending Provider: Alexus Brennan Exercise Technologist: Marguerite Weston Exercise Physician: Jericho Hancock DO Summary 1. 1. Negative Joss exercise stress test for ischemic ST changes by ECG criteria. 2. 2. Good functional capacity, achieving 12 METs of workload. 3. 3. Appropriate HR response to exercise. 4. 4. Appropriate HR recovery at 1 minute post exercise. 5. 5. No imaging with stress testing. 6. 6. Patient informed of the above results. Protocol: Joss Stress ECG Details Stage: REST Duration (min): 4 min : 17 sec Speed (mph): 0.0 Grade (%): 0 HR (bpm): 57 SBP (mmHg): 111 DBP (mmHg): 72 METS: --- Stage: REST Duration (min): 9 min : 41 sec Speed (mph): 0.0 Grade (%): 0 HR (bpm): 68 SBP (mmHg): 111 DBP (mmHg): 72 METS: --- Stage: STAGE 1 Duration (min): 1 min : 0 sec Speed (mph): 1.7 Grade (%): 10 HR (bpm): 91 SBP (mmHg): 111 DBP (mmHg): 72 METS: --- Stage: STAGE 1 Duration (min): 2 min : 0 sec Speed (mph): 1.7 Grade (%): 10 HR (bpm): 98 SBP (mmHg): 111 DBP (mmHg): 72 METS: --- Stage: STAGE 1 Duration (min): 3 min : 0 sec Speed (mph): 1.7 Grade (%): 10 HR (bpm): 98 SBP (mmHg): 123 DBP (mmHg): 64 METS: --- Stage: STAGE 2 Duration (min): 1 min : 0 sec Speed (mph): 2.5 Grade (%): 12 HR (bpm): 109 SBP (mmHg): 123 DBP (mmHg): 64 METS: --- Stage: STAGE 2 Duration (min): 2 min : 0 sec Speed (mph): 2.5 Grade (%): 12 HR (bpm): 113 SBP (mmHg): 131 DBP (mmHg): 65 METS: --- Stage: STAGE 2 Duration (min): 3 min : 0 sec Speed (mph): 2.5 Grade (%): 12 HR (bpm): 117 SBP (mmHg): 131 DBP (mmHg): 65 METS: --- Stage: STAGE 3 Duration (min): 1 min : 0 sec Speed (mph): 3.4 Grade (%): 14 HR (bpm): 125 SBP (mmHg): 137 DBP (mmHg): 70 METS: --- Stage: STAGE 3 Duration (min): 2 min : 0 sec Speed (mph): 3.4 Grade (%): 14 HR (bpm): 128 SBP (mmHg): 137 DBP (mmHg): 70 METS: --- Stage: STAGE 3 Duration (min): 3 min : 0 sec Speed (mph): 3.4 Grade (%): 14 HR (bpm): 134 SBP (mmHg): 134 DBP (mmHg): 70 METS: --- Stage: STAGE 4 Duration (min): 1 min : 0 sec Speed (mph): 4.2 Grade (%): 16 HR (bpm): 144 SBP (mmHg): 134 DBP (mmHg): 70 METS: --- Stage: STAGE 4 Duration (min): 2 min : 0 sec Speed (mph): 4.2 Grade (%): 16 HR (bpm): 151 SBP (mmHg): 144 DBP (mmHg): 70 METS: --- Stage: STAGE 4 Duration (min): 2 min : 0 sec Speed (mph): 4.2 Grade (%): 16 HR (bpm): 151 SBP (mmHg): 144 DBP (mmHg): 70 METS: --- Stage: RECOVERY Duration (min): 0 min : 59 sec Speed (mph): 0.0 Grade (%): 0 HR (bpm): 119 SBP (mmHg): 144 DBP (mmHg): 70 METS: --- Stage: RECOVERY Duration (min): 1 min : 59 sec Speed (mph): 0.0 Grade (%): 0 HR (bpm): 111 SBP (mmHg): 144 DBP (mmHg): 70 METS: --- Stage: RECOVERY Duration (min): 2 min : 59 sec Speed (mph): 0.0 Grade (%): 0 HR (bpm): 101 SBP (mmHg): 141 DBP (mmHg): 84 METS: --- Stage: RECOVERY Duration (min): 3 min : 59 sec Speed (mph): 0.0 Grade (%): 0 HR (bpm): 85 SBP (mmHg): 141 DBP (mmHg): 84 METS: --- Stage: RECOVERY Duration (min): 4 min : 49 sec Speed (mph): 0.0 Grade (%): 0 HR (bpm): 88 SBP (mmHg): 135 DBP (mmHg): 84 METS: --- Rest HR: 68 bpm Peak HR: 151 bpm Rest Sys BP: 111 mmHg Peak Sys BP: 144 mmHg Max Pred HR: 165 bpm % Max Pred HR: 92 % Target HR: 140 bpm Max RPP: 21,744 bpm*mmHg Panda Score: -4 Termination Reason: Reached target heart rate or workload Cardiac Symptoms: Shortness of breath Max ST Seg Deviation: 3.00 mm Total Time: 11 min : 0 sec Rest Sandhu BP: 72 mmHg Peak Sandhu BP: 70 mmHg Angina Score: None Total METS: 12.1 Resting ECG Sinus rhythm. Stress ECG No ST changes. Arrhythmias None. Report Signatures
--- NOTE | 2025-01-30 08:50 | ECHO_ITS ---
Patient Info Name: Brodie Arreola Age: 54 years : 1970 Gender: Male Ht: 67 in Wt: 160 lbs BSA: 1.86 m2 HR: 60 bpm BP: 110 / 83 mmHg Heart Rhythm: Sinus Rhythm Technical Quality: Fair Exam Date: 01/30/2025 9:00 AM Patient Status: O Admit Date: 01/30/2025 Exam Type: CA echo doppler color flow Complete two-dimensional, color flow and Doppler transthoracic echocardiogram is performed. Foundation Drill Operator Helper: Sridevi Marques Attending Provider: Alexus Brennan Summary 1. Complete two-dimensional, color flow and Doppler transthoracic echocardiogram is performed. 2. Left ventricular chamber dimension is normal. 3. Left ventricular systolic function is normal, estimated at 60-65. 4. The left ventricular diastolic function is normal. 5. E/e' 5 is not elevated. 6. No pulmonary hypertension, estimated pulmonary arterial systolic pressure is 22 mmHg. Left Ventricle E/e' 5 is not elevated. Left ventricular chamber dimension is normal. Left ventricular systolic function is normal, estimated at 60-65. The left ventricular diastolic function is normal. Right Ventricle Right ventricular chamber dimension is normal. Right ventricular systolic function is normal and with normal TAPSE 2.1 cm. Left Atria Left atrial chamber dimension is normal. Right Atria Right atrial chamber dimension is normal. Aortic Valve The aortic valve is trileaflet. There is no aortic valve stenosis. There is no aortic valve regurgitation. Pulmonic Valve There is no pulmonic regurgitation. Mitral Valve There is no mitral valve stenosis. There is no mitral valve regurgitation. Tricuspid Valve There is no tricuspid valve regurgitation. No pulmonary hypertension, estimated pulmonary arterial systolic pressure is 22 mmHg. Pericardium/Pleural There is no pericardial effusion. Inferior Vena Cava Normal inferior vena cava with >50% collapse upon inspiration consistent with normal right atrial pressure, 5 mmHg. Aorta The aortic root size at the sinus of Valsalva is normal. Left Ventricular Outflow Tract Name Value Normal LVOT 2D LVOT Diameter 2.0 cm LVOT Doppler LVOT Peak Velocity 72 cm/s LVOT Peak Gradient 2 mmHg LVOT Mean Gradient 1 mmHg LVOT VTI 17 cm LVOT VTI/AV VTI Ratio 0.7 LVOT Stroke Volume 52 ml LVOT CO 3.3 l/min LVOT CI 1.8 l/min/m2 Pulmonic Valve Name Value Normal RVOT Doppler RVOT Peak Velocity 68 cm/s RVOT Peak Gradient 2 mmHg PV Doppler PV Peak Velocity 86 cm/s PV Peak Gradient 3 mmHg Mitral Valve Name Value Normal MV Diastolic Function MV E Peak Velocity 62 cm/s MV A Peak Velocity 48 cm/s MV E/A 1.3 MV Decel Time (PW) 236 ms MV Annular TDI MV E/e' (Septal) 6.4 MV E/e' (Lateral) 4.4 MV E/e' (Average) 5.4 Tricuspid Valve Name Value Normal TV Regurgitation Doppler TR Peak Velocity 206 cm/s TR Peak Gradient 17 mmHg Estimated PAP/RSVP RA Pressure 5 mmHg <=5 PA Systolic Pressure 22 mmHg <36 RV Systolic Pressure 22 mmHg <36 TV Annular TDI TV Lateral Trina s' Velocity 12.6 cm/s >=9.5 Aorta Name Value Normal Ascending Aorta Ao Root Diameter (MM) 3.1 cm Ao Root Diam Index (MM) 1.7 cm/m2 Aortic Valve Name Value Normal AV Doppler AV Peak Velocity 137 cm/s AV Peak Gradient 8 mmHg AV Mean Gradient 3 mmHg AV VTI 25 cm AV Area (Cont Eq VTI) 2.1 cm2 >=3.0 AV Area (Cont Eq Dima) 1.7 cm2 AV DI (Dima) 0.53 AV Regurgitation 2D LVOT Area 3.1 cm2 Ventricles Name Value Normal LV Dimensions 2D/MM IVS Diastolic Thickness (2D) 0.7 cm 0.6-1.0 LVID Diastole (2D) 5.3 cm 4.2-5.8 LVIW Diastolic Thickness (2D) 0.7 cm 0.6-1.0 LVID Systole (2D) 3.5 cm 2.5-4.0 LVOT Diameter 2.0 cm LV Mass (2D Cubed) 124.77 g 88.00-224.00 LV Mass Index (2D Cubed) 67 g/m2 49-115 Relative Wall Thickness (2D) 0.26 <=0.42 LV Fractional Shortening/Ejection Fraction 2D/MM LV Fractional Shortening (2D) 35 % 25-43 LV EF (2D Teichholz) 64 % LV Diastolic Volume (4C MOD) 85 ml LV EF (4C MOD) 60 % LV Diastolic Volume (2C MOD) 74 ml LV EF (2C MOD) 60 % LV Diastolic Volume (BP MOD) 79 ml 62-150 LV Diastolic Volume Index (BP MOD) 43 ml/m2 34-74 LV Systolic Volume (BP MOD) 33 ml 21-61 LV Systolic Volume Index (BP MOD) 18 ml/m2 11-31 LV EF (BP MOD) 58 % 52-72 LV Diastolic Length (4C) 8.1 cm LV Systolic Length (4C) 6.3 cm LV Stroke Volume (4C MOD) 51 ml Atria Name Value Normal LA Dimensions LA Dimension (MM) 4.0 cm 3.0-4.0 LA Volume (4C A-L) 40 ml LA Volume (BP A-L) 49 ml RA Dimensions RA Area (4C) 12.7 cm2 <=18.0 Report Signatures
--- NOTE | 2025-01-30 12:14 | WPDPFTINT ---
PFT Procedure Performed PFT Procedure Performed Spirometry with Pre/Post Bronchodilator Plethysmography (Lung Vol) Diffusing Cap (DLCO) Flow Vol Loop PFT Interpretation This is a pulmonary function test with pre and post-bronchodilator spirometry, plethysmography and diffusing capacity. The test was performed and results interpreted in accordance with the 2019 and 2005 ATS/ERS Task Force guidelines respectively using the Global Lung Function Initiative-2012 reference equations. Patient demonstrated good effort and cooperation. Reproducibility criteria were met. The quality of the pre bronchodilator spirometry maneuver was Grade A and post bronchodilator spirometry maneuver was Grade A. Findings: Spirometry: The contour of the inspiratory and expiratory flow tracing are normal. The pre bronchodilator FVC is 4.08 L, 112% predicted. The pre bronchodilator FEV1 is 3.21 L, 110% predicted. The pre bronchodilator FEV1: FVC ratio 79%. The post bronchodilator FVC is 4.23 L, representing a 4% increase. The post bronchodilator FEV1 is 3.38 L, representing a 5% increase. The post bronchodilator FEV1: FVC ratio is 80%. Plethysmography: The total lung capacity is 5.89 L, 105% predicted. The functional residual capacity is 2.88 L, 96% predicted. The residual volume is 1.56 L, 85% predicted. Diffusing capacity: The diffusing capacity unadjusted for hemoglobin and carboxyhemoglobin is 25.9, 92% predicted. The diffusing capacity adjusted for alveolar volume is 4.74, 104% predicted. Impression: The spirometry is normal without evidence of an obstructive abnormality. There is no significant improvement after inhaling a single dose of albuterol. The lung volumes are normal. The diffusing capacity is normal. There are no prior studies for comparison
== END 2025-01-30 08:42 | disposition home or self-care (01) ==
PROVIDERS: PCP Family Medicine; Visit Provider Family Medicine
DX: R06.02 Shortness of breath (principal)
CPT/HCPCS: 93017; 93306; 94060; 94726; 94729